=== PATIENT | male | born 1945 | race Caucasian/White ===

== ENCOUNTER 2016-09-28 03:46 | Inpatient (IN) | payer MEDICARE, OTHER ==
--- NOTE | ~2016-09-28 | DS ---
Discharge Summary [facility] [address] [place]. [address] NAME: NATHANIEL MEDINA JR : 41 STATUS : DIS IN PAT#: [id number] AGE: 71 ADM/REG DATE : 09/28/16 MR#: [id number] REPORT SERV DATE: 10/15/16 DICTATED BY: CHARLIE VILLAFANA DATE: 10/14/16 REPORT STATUS : Draft TRANSCRIBED BY: DASHA DATE: 10/14/16 Data Collection from hospitalization DISCHARGE DIAGNOSIS(ES): 1. End-stage renal disease. 2. Hypocalcemia. 3. Nausea, vomiting, and diarrhea - resolved. 4. Diabetes mellitus. 5. Hypoglycemia - resolved. 6. Hypertension. 7. Obstructive sleep apnea. 8. Coronary artery disease. CONSULTATIONS: None. PROCEDURES PERFORMED: 1. CT scan of the brain without contrast, 09/28/2016. 2. CT scan of the chest without contrast, 09/28/2016. 3. CT scan of the abdomen and pelvis without contrast, 09/28/2016. MEDICATIONS: Norvasc 5 mg daily, vitamin D 2000 units daily, CoQ enzyme 100 mg daily, Aricept 10 mg at bedtime, NovoLog injection insulin as instructed, Lopressor 25 mg twice a day - hold for systolic blood pressure less than 110, Protonix 40 mg before breakfast and supper, Pravachol 40 mg at bedtime, Zoloft 50 mg daily, Flomax 0.4 mg at 6 p.m., Levemir 6 units subcutaneously at bedtime, Nitrostat 0.4 mg sublingually as needed. CONDITION AT DISCHARGE: Stable. DISPOSITION: The patient was discharged to [facility] on a renal/diabetic diet with activities as instructed. HOSPITAL COURSE: This is a 71-year-old man who has end-stage renal disease. He dialyzes as a transient four months of the year. He is from [facility]. He had been sick for over a week now with nausea, vomiting, and diarrhea. Apparently Thursday, prior to this admission, his blood pressure was in the 80s, his blood sugar was low. He, therefore, did not go to dialysis and came to the emergency department. At that visit, he had a negative CT scan of the abdomen. He continued to have nausea, vomiting, and diarrhea. At approximately midnight on the night prior to this admission, he got up to go to the bathroom and fell. He was brought to the emergency department. In the emergency department, he was found to have rib fractures and had a low blood sugar at 33. He had had multiple electrolyte abnormalities. He did have significant pain to his wrist. He has right-sided abdominal pain. He had no nausea or vomiting on the morning of this admission and no diarrhea. He denied fevers or chills. He was admitted to the hospital for further evaluation and treatment. Upon admission, CT scan of the chest showed a question of a pulmonary contusion, CT scan of the brain was negative. Troponin was 0.08. The patient does have hypotension that had improved. He has hypocalcemia and hypomagnesemia as well as hypokalemia and leukocytosis. Discharge Summary [id number] [place]. [address] NAME: NATHANIEL MEDINA JR : 41 STATUS : DIS IN PAT#: [id number] AGE: 71 ADM/REG DATE : 09/28/16 MR#: [id number] REPORT SERV DATE: 10/15/16 DICTATED BY: CHARLIE VILLAFANA DATE: 10/14/16 REPORT STATUS : Draft TRANSCRIBED BY: DASHA DATE: 10/14/16 We are going to recheck a CT scan of the abdomen given the significant tenderness to the right side of his abdomen. Stool was going to be checked for C difficile. We would replace his electrolytes and hydrate. Dialysis would be performed the following day. Pain and nausea medication were provided. CT scan of the abdomen and pelvis without contrast was performed. Empiric Levaquin and Flagyl had been started. Electrolytes were being replaced. The following day, he had no complaints of chest pain. He had no edema. His abdomen was soft and nontender. On September 30, 2016, white blood cell count was 5.9. He had no complaints of abdominal pain at this time. He had no vomiting or diarrhea. On October 01, 2016, hemodialysis therapy was performed. O2 saturation was 98% on room air. We were going to watch him off antibiotics. Urinalysis was negative. Metoprolol was going to be restarted. Over the next couple of days, he continued to undergo his hemodialysis. He was off antibiotics. Norvasc was added for hypertension. Discharge planning was performed. He was off glipizide. Sliding scale insulin continued. Discharge planning was performed. Vitamin D was given. On 10/04/2016, he was alert and cooperative. He had no focal deficits. He had good pain control. Discharge instructions were given. Due to his improved and stable condition, he was discharged to [facility] with the above-stated instructions. Information collected by: Eunice Biswas I submit the above information as my discharge summary. TG/MODL Charlie Villafana M.D. / [id number] CC: Flo Newman M.D. [facility]
--- NOTE | ~2016-09-28 | HP ---
History And Physical [id number] [place]. [address] NAME: NATHANIEL MEDINA JR : 41 STATUS : ADM IN [facility]#: [id number] AGE: 71 ADM/REG DATE : 09/28/16 MR#: [id number] REPORT SERV DATE: 09/28/16 DICTATED BY: DATE: REPORT STATUS : Draft TRANSCRIBED BY: MODL DATE: 09/28/16 DATE OF ADMISSION: 09/28/2016 CHIEF COMPLAINT: Fall. HISTORY OF PRESENT ILLNESS: Mr. Medina is a 71-year-old white male, who has end-stage renal disease. He dialyzes with us as a transient four months of the year. He is from [facility]. He has been sick for over a week now with nausea, vomiting, diarrhea. Apparently, Thursday his blood pressure was in the 80s. Blood sugar was low. Therefore, he did not go to dialysis, came to the emergency department . At that visit, he had a negative CT of the abdomen. He has continued to have nausea, vomiting, diarrhea. Approximately midnight last night, he got up to the bathroom and fell, was brought to the emergency department. In the emergency department, he was found to have rib fractures, low blood sugar at 33, multiple electrolyte abnormalities. He is having significant pain to his rib. He has right-sided abdominal pain. No nausea, vomiting this a.m. and no diarrhea. Denies fevers or chills. PAST MEDICAL HISTORY: End-stage renal disease; diabetes; hypertension; obstructive sleep apnea, uses CPAP; coronary artery disease, status post bypass. FAMILY MEDICAL HISTORY: No end-stage renal disease. SOCIAL HISTORY: He is . No tobacco, but history of no alcohol or illicit drug use. ALLERGIES: NONE. HOME MEDICATIONS: Cholecalciferol, coenzyme Q10, Aricept, Glucotrol, Apresoline, NovoLog, Lantus, Lopressor, Procardia, Protonix, Pravachol, Phenergan, Zoloft, Flomax. REVIEW OF SYSTEMS: A 12-point review of systems obtained, negative with the exception of that in HPI. PHYSICAL EXAMINATION: VITAL SIGNS: Temp 98, blood pressure 113/53, pulse 105, respiratory rate 20, O2 saturation is 100%. GENERAL: This is a pleasant, cooperative white male. He is awake, alert, and oriented. Answers questions appropriately. HEENT: Normocephalic, atraumatic. Conjunctivae clear. Sclerae anicteric. Pupils are equal and round. Oral mucosa is moist. NECK: Supple. Carotids. No bruits. Neck veins flat. No lymphadenopathy. LUNGS: Respirations are even and unlabored. Decreased, but clear. HEART: Rate is regular. No murmur, rub, or gallop. ABDOMEN: Soft. He has tenderness to the right side of his abdomen. Both quadrants with hyperactive bowel sounds. No CVA tenderness. BACK: Within normal limits. EXTREMITIES: No edema, cyanosis, clubbing. Positive thrill and bruit. Left upper arm AV History And Physical [address] [place]. [address] NAME: NATHNAIEL MEDINA JR : 41 STATUS : ADM IN [facility]#: [id number] AGE: 71 ADM/REG DATE : 09/28/16 MR#: [id number] REPORT SERV DATE: 09/28/16 DICTATED BY: DATE: REPORT STATUS : Draft TRANSCRIBED BY: MODL DATE: 09/28/16 fistula. NEURO: No focal deficits. Mood and affect, pleasant and appropriate. PERTINENT LABS AND X-RAYS: He has had a chest x-ray that is negative. CT of the chest shows question of pulmonary contusion. CT of the brain negative. Sodium 134, potassium 2.9, chloride 96, CO2 of 17, BUN of 68, creatinine 15. Magnesium 1.3, calcium 6.5. Albumin 3.2. LFTs unremarkable. Troponin 0.08. WBC is 1400, H and H 12 and 35, platelets 229,000. INR 1.2. Glucose was 33, 42, 61 was last. IMPRESSION: 1. Fall. 2. Hypoglycemia. 3. Chest contusion on CT. 4. Nausea, vomiting, diarrhea for over one week. 5. Hypotension that improved. 6. Hypocalcemia. 7. Hypomagnesemia. 8. Hypokalemia. 9. Leukocytosis. PLAN: I am going to recheck a CT of the abdomen given the significant tenderness to the right side of his abdomen. Check stool for C. diff. Replace electrolytes, hydrate. Dialysis tomorrow. Pain and nausea medicine provided. Further orders and recommendations pending above results. TERRELL/MODL ELVIA Powell / [id number] CC: Flo Newman M.D.
[2016-09-28 03:38] LABS: BASOPHILS 0.1 %; BASOPHILS ABSOLUTE 0.01 10/3/uL (0.0-0.16); EOSINOPHILS 0.4 %; EOSINOPHILS ABSOLUTE 0.05 10/3/uL (0.0-0.53); ER CBC TAT 0 Hrs 07 Mins; HEMATOCRIT 35.1 % (40.0-51.0); HEMOGLOBIN 12.4 g/dL (13.6-17.8); IMMATURE GRANULOCYTES 0.5 %; IMMATURE GRANULOCYTES ABSOLUTE 0.07 10/3/uL (0.0-0.11); LYMPHOCYTES 6.4 %; MANUAL DIFF NO %; MEAN CORPUS HGB CONC 35.3 g/dL (32.0-36.0); MEAN CORPUSCULAR HEMOGLOB 31.2 pg (26.0-34.0); MEAN CORPUSCULAR VOLUME 88.4 fL (80-100); MEAN PLATELET VOLUME 10.3 fL (9.2-13.0); MONOCYTES 4.7 %; MONOCYTES ABSOLUTE 0.66 10/3/uL (0.21-1.20); NEUTROPHILS 87.9 %; NEUTROPHILS ABSOLUTE 12.39 10/3/uL (2.02-8.40); PLATELET COUNT 229 10/3/uL (150-400); RBC DISTRIBUTION WIDTH 13.7 % (12.0-16.0); RED CELL COUNT 3.97 10/6/uL (4.7-6.1); WHITE BLOOD CELLS 14.1 10/3/uL (4.5-10.5)
[~2016-09-28 03:46] MED LIST: AFEDITAB30 MG PO; ASAB PO; CO Q-10100 MG PO; CO Q-10200 MG PO; COZ50 PO; FLOMAX4 PO; GLUCOTRO10 PO; HALF81 PO; INSNOVR SC; LANTUS SC; LOP25 PO; LOP50 PO; MONOKET20 PO; NITROSTAT0.4 MG SL; NOVOLOG SC; PHOSLO PO; PRAVACHOL40 MG PO; PRILO PO; PRILOSEC40 MG PO; PRIN10 PO; PROTONIX PO; TUMSROLL PO; ZITH250 PO; ZOL50 PO
[2016-09-28 03:51] LABS: INTERNATIONAL NORMAL RATI 1.2 UNITS (-); PARTIAL THROMBO TIME 27.5 SEC (22.5-37.2); PROTIME (NOT ORD) 14.6 SEC (12.0-14.5)
[2016-09-28 03:56] LABS: ALBUMIN 3.2 G/DL (3.5-5.0); ALKALINE PHOSPHATASE 90 U/L (45-117); CHLORIDE, SERUM 96 MMOL/L (96-112); CO2 (CARBON DIOXIDE) 17 MMOL/L (24-34); SGOT(AST) 27 U/L (5-40); SGPT(ALT) 27 U/L (5-65); SODIUM, SERUM 134 MMOL/L (135-148); TOTAL BILIRUBIN 0.3 MG/DL (0-1.2); TOTAL PROTEIN 8.5 G/DL (6.0-8.5)
[2016-09-28 03:57] LABS: BUN (BLOOD UREA NITROGEN) 68 MG/DL (6-23); CALCIUM, SERUM 6.5 MG/DL (8.5-10.4); CHEST PAIN PROFILE TAT 0 Hrs 26 Mins; DIRECT BILIRUBIN < 0.1 MG/DL (0.0-0.4); GFR AFRICAN AMERICAN 3 ML/MIN (>=60); GFR NON AFRICAN AMERICAN 3 ML/MIN (>=60); GLUCOSE, SERUM 33 MG/DL (60-99); INDIRECT BILIRUBIN(NOT ORDER) 0.2 MG/DL (0.1-0.9); POTASSIUM, SERUM 2.9 MMOL/L (3.5-5.3); TROPONIN I 0.08 NG/ML (<0.05)
[2016-09-28] MEDS ORDERED: VITAMIN D31000 UNIT PO (04:25)
[2016-09-28] MEDS ORDERED: [UNRECOGNIZED DRUG - OTHER] (04:41)
[2016-09-28] MEDS ORDERED: ARICEPT10 PO (04:42)
[2016-09-28] MEDS ORDERED: LOP50 PO (04:42)
[2016-09-28] MEDS ORDERED: ZOL50 PO (04:43)
[2016-09-28] MEDS ORDERED: FLOMAX4 PO (04:43)
[2016-09-28] MEDS ORDERED: GLUCOTRO10 PO (04:43)
[2016-09-28] MEDS ORDERED: PRAVACHOL40 MG PO (04:44)
[2016-09-28] MEDS ORDERED: PROTONIX PO (04:48)
[2016-09-28] MEDS ORDERED: NOVOLOG SC (04:49)
[2016-09-28] MEDS ORDERED: PR25 PO (04:49)
[2016-09-28] MEDS ORDERED: LANTUS SC ×2 (04:50→15:30)
[2016-09-28] MEDS ORDERED: APRES10B PO (04:50)
[2016-09-28] MEDS ORDERED: [UNRECOGNIZED DRUG - OTHER] PO ×3 (04:52→15:27)
[2016-09-28] MEDS ORDERED: Co Q-10 PO (04:53)
[2016-09-28 11:02] LABS: CPK 250 U/L (0-200)
[2016-09-28 11:04] LABS: CK-MB 3.4 NG/ML; TROPONIN I 0.07 NG/ML (<0.05)
[2016-09-28 14:30] LABS: ALBUMIN 2.7 G/DL (3.5-5.0); BUN (BLOOD UREA NITROGEN) 67 MG/DL (6-23); CHLORIDE, SERUM 94 MMOL/L (96-112); GFR AFRICAN AMERICAN 3 ML/MIN (>=60); GFR NON AFRICAN AMERICAN 3 ML/MIN (>=60); POTASSIUM, SERUM 3.3 MMOL/L (3.5-5.3); SODIUM, SERUM 132 MMOL/L (135-148)
[2016-09-28 14:37] LABS: CALCIUM, SERUM 6.1 MG/DL (8.5-10.4); CO2 (CARBON DIOXIDE) 14 MMOL/L (24-34); GLUCOSE, SERUM 115 MG/DL (60-99); PHOSPHORUS, SERUM 7.3 MG/DL (2.5-4.5)
[2016-09-28] MEDS ORDERED: T PO (15:31)
[2016-09-28] MEDS ORDERED: NITROSTAT0.4 MG SL (15:34)
[2016-09-28 17:54] LABS: CPK 210 U/L (0-200)
[2016-09-28 17:59] LABS: CK-MB 2.6 NG/ML; TROPONIN I 0.08 NG/ML (<0.05)
[2016-09-29 07:26] LABS: BASOPHILS 0.1 %; BASOPHILS ABSOLUTE 0.01 10/3/uL (0.0-0.16); EOSINOPHILS 3.6 %; EOSINOPHILS ABSOLUTE 0.26 10/3/uL (0.0-0.53); HEMATOCRIT 26.8 % (40.0-51.0); HEMOGLOBIN 9.7 g/dL (13.6-17.8); IMMATURE GRANULOCYTES 0.5 %; IMMATURE GRANULOCYTES ABSOLUTE 0.04 10/3/uL (0.0-0.11); LYMPHOCYTES 22.3 %; LYMPHOCYTES ABSOLUTE 1.63 10/3/uL (0.67-4.30); MANUAL DIFF NO %; MEAN CORPUS HGB CONC 36.2 g/dL (32.0-36.0); MEAN CORPUSCULAR HEMOGLOB 32.3 pg (26.0-34.0); MEAN CORPUSCULAR VOLUME 89.3 fL (80-100); MONOCYTES 14.5 %; MONOCYTES ABSOLUTE 1.06 10/3/uL (0.21-1.20); NEUTROPHILS ABSOLUTE 4.32 10/3/uL (2.02-8.40); PLATELET COUNT 161 10/3/uL (150-400); RBC DISTRIBUTION WIDTH 13.7 % (12.0-16.0); WHITE BLOOD CELLS 7.3 10/3/uL (4.5-10.5)
[2016-09-29 07:46] LABS: ALBUMIN 2.4 G/DL (3.5-5.0); CHLORIDE, SERUM 97 MMOL/L (96-112); CO2 (CARBON DIOXIDE) 16 MMOL/L (24-34); PHOSPHORUS, SERUM 7.2 MG/DL (2.5-4.5); POTASSIUM, SERUM 3.7 MMOL/L (3.5-5.3); SODIUM, SERUM 136 MMOL/L (135-148)
[2016-09-29 07:47] LABS: BUN (BLOOD UREA NITROGEN) 71 MG/DL (6-23); GFR AFRICAN AMERICAN 3 ML/MIN (>=60); GFR NON AFRICAN AMERICAN 3 ML/MIN (>=60); GLUCOSE, SERUM 59 MG/DL (60-99)
[2016-09-29 09:02] LABS: PROCALCITONIN 2.27 ng/mL (<0.5)
[2016-09-30 05:46] LABS: BASOPHILS 0.2 %; BASOPHILS ABSOLUTE 0.01 10/3/uL (0.0-0.16); EOSINOPHILS 4.8 %; EOSINOPHILS ABSOLUTE 0.28 10/3/uL (0.0-0.53); HEMATOCRIT 25.5 % (40.0-51.0); IMMATURE GRANULOCYTES 0.5 %; IMMATURE GRANULOCYTES ABSOLUTE 0.03 10/3/uL (0.0-0.11); LYMPHOCYTES 28.4 %; LYMPHOCYTES ABSOLUTE 1.66 10/3/uL (0.67-4.30); MEAN CORPUS HGB CONC 35.3 g/dL (32.0-36.0); MEAN CORPUSCULAR HEMOGLOB 32.1 pg (26.0-34.0); MEAN CORPUSCULAR VOLUME 91.1 fL (80-100); MEAN PLATELET VOLUME 9.8 fL (9.2-13.0); MONOCYTES ABSOLUTE 0.82 10/3/uL (0.21-1.20); NEUTROPHILS 52.1 %; NEUTROPHILS ABSOLUTE 3.05 10/3/uL (2.02-8.40); PLATELET COUNT 167 10/3/uL (150-400); RBC DISTRIBUTION WIDTH 13.8 % (12.0-16.0); WHITE BLOOD CELLS 5.9 10/3/uL (4.5-10.5)
[2016-09-30 05:47] LABS: MANUAL DIFF NO %
[2016-09-30 06:01] LABS: ALBUMIN 2.2 G/DL (3.5-5.0); CHLORIDE, SERUM 103 MMOL/L (96-112); POTASSIUM, SERUM 3.9 MMOL/L (3.5-5.3); SODIUM, SERUM 141 MMOL/L (135-148)
[2016-09-30 06:02] LABS: BUN (BLOOD UREA NITROGEN) 36 MG/DL (6-23); CALCIUM, SERUM 6.4 MG/DL (8.5-10.4); CO2 (CARBON DIOXIDE) 23 MMOL/L (24-34); GFR AFRICAN AMERICAN 5 ML/MIN (>=60); GFR NON AFRICAN AMERICAN 4 ML/MIN (>=60); GLUCOSE, SERUM 230 MG/DL (60-99); PHOSPHORUS, SERUM 3.7 MG/DL (2.5-4.5)
[2016-10-01 09:03] LABS: BASOPHILS 0.1 %; BASOPHILS ABSOLUTE 0.01 10/3/uL (0.0-0.16); EOSINOPHILS 4.4 %; EOSINOPHILS ABSOLUTE 0.44 10/3/uL (0.0-0.53); HEMATOCRIT 25.8 % (40.0-51.0); HEMOGLOBIN 9.2 g/dL (13.6-17.8); IMMATURE GRANULOCYTES 0.4 %; IMMATURE GRANULOCYTES ABSOLUTE 0.04 10/3/uL (0.0-0.11); LYMPHOCYTES 12.6 %; LYMPHOCYTES ABSOLUTE 1.25 10/3/uL (0.67-4.30); MEAN CORPUS HGB CONC 35.7 g/dL (32.0-36.0); MEAN CORPUSCULAR HEMOGLOB 32.4 pg (26.0-34.0); MEAN CORPUSCULAR VOLUME 90.8 fL (80-100); MEAN PLATELET VOLUME 9.9 fL (9.2-13.0); MONOCYTES 9.6 %; MONOCYTES ABSOLUTE 0.95 10/3/uL (0.21-1.20); NEUTROPHILS 72.9 %; NEUTROPHILS ABSOLUTE 7.24 10/3/uL (2.02-8.40); PLATELET COUNT 189 10/3/uL (150-400); RBC DISTRIBUTION WIDTH 13.5 % (12.0-16.0); RED CELL COUNT 2.84 10/6/uL (4.7-6.1)
[2016-10-01 09:04] LABS: MANUAL DIFF NO %; WHITE BLOOD CELLS 9.9 10/3/uL (4.5-10.5)
[2016-10-01 09:14] LABS: ALBUMIN 2.3 G/DL (3.5-5.0); BUN (BLOOD UREA NITROGEN) 49 MG/DL (6-23); CALCIUM, SERUM 6.4 MG/DL (8.5-10.4); CHLORIDE, SERUM 104 MMOL/L (96-112); CO2 (CARBON DIOXIDE) 21 MMOL/L (24-34); GFR AFRICAN AMERICAN 4 ML/MIN (>=60); GFR NON AFRICAN AMERICAN 4 ML/MIN (>=60); GLUCOSE, SERUM 152 MG/DL (60-99); POTASSIUM, SERUM 4.3 MMOL/L (3.5-5.3); SODIUM, SERUM 140 MMOL/L (135-148)
[2016-10-02 05:51] LABS: ALBUMIN 2.2 G/DL (3.5-5.0); CHLORIDE, SERUM 104 MMOL/L (96-112); CO2 (CARBON DIOXIDE) 24 MMOL/L (24-34); GLUCOSE, SERUM 144 MG/DL (60-99); POTASSIUM, SERUM 4.4 MMOL/L (3.5-5.3); SODIUM, SERUM 140 MMOL/L (135-148)
[2016-10-02 05:57] LABS: BUN (BLOOD UREA NITROGEN) 30 MG/DL (6-23); CALCIUM, SERUM 6.9 MG/DL (8.5-10.4); CREATININE 8.95 MG/DL (0.70-1.30); GFR AFRICAN AMERICAN 6 ML/MIN (>=60); GFR NON AFRICAN AMERICAN 5 ML/MIN (>=60)
[2016-10-03 07:51] LABS: BASOPHILS 0.3 %; BASOPHILS ABSOLUTE 0.03 10/3/uL (0.0-0.16); EOSINOPHILS 6.9 %; EOSINOPHILS ABSOLUTE 0.64 10/3/uL (0.0-0.53); HEMOGLOBIN 9.1 g/dL (13.6-17.8); IMMATURE GRANULOCYTES 2.3 %; IMMATURE GRANULOCYTES ABSOLUTE 0.21 10/3/uL (0.0-0.11); LYMPHOCYTES 21.5 %; LYMPHOCYTES ABSOLUTE 1.99 10/3/uL (0.67-4.30); MEAN CORPUSCULAR HEMOGLOB 32.4 pg (26.0-34.0); MEAN CORPUSCULAR VOLUME 92.5 fL (80-100); MEAN PLATELET VOLUME 9.2 fL (9.2-13.0); MONOCYTES ABSOLUTE 0.83 10/3/uL (0.21-1.20); NEUTROPHILS ABSOLUTE 5.54 10/3/uL (2.02-8.40); PLATELET COUNT 197 10/3/uL (150-400); RBC DISTRIBUTION WIDTH 13.4 % (12.0-16.0); RED CELL COUNT 2.81 10/6/uL (4.7-6.1); WHITE BLOOD CELLS 9.2 10/3/uL (4.5-10.5)
[2016-10-03 07:54] LABS: MANUAL DIFF NO %
[2016-10-03 08:00] LABS: ALBUMIN 2.2 G/DL (3.5-5.0); BUN (BLOOD UREA NITROGEN) 42 MG/DL (6-23); CALCIUM, SERUM 6.6 MG/DL (8.5-10.4); CHLORIDE, SERUM 101 MMOL/L (96-112); CO2 (CARBON DIOXIDE) 23 MMOL/L (24-34); GFR AFRICAN AMERICAN 5 ML/MIN (>=60); GFR NON AFRICAN AMERICAN 4 ML/MIN (>=60); GLUCOSE, SERUM 169 MG/DL (60-99); PHOSPHORUS, SERUM 4.1 MG/DL (2.5-4.5); POTASSIUM, SERUM 4.5 MMOL/L (3.5-5.3); SODIUM, SERUM 139 MMOL/L (135-148)
== END 2016-10-04 16:07 | DRG 205 ==
LOC: ER 03:46 → 2SO 06:19
PROVIDERS: Emergency Medicine; Internal Medicine Nephrology; Nurse Practitioner; Registered Nurse
PROC: 5A1D60Z (ICD-10-PCS; principal; 2016-09-29)
DX: S22.32XA Fracture of one rib, left side, initial encounter for closed fracture (principal); N18.6 End stage renal disease; I95.9 Hypotension, unspecified; E11.22 Type 2 diabetes mellitus with diabetic chronic kidney disease; I12.0 Hypertensive chronic kidney disease with stage 5 chronic kidney disease or end stage renal disease; E83.42 Hypomagnesemia; R11.2 Nausea with vomiting, unspecified; R19.7 Diarrhea, unspecified; G47.33 Obstructive sleep apnea (adult) (pediatric); I25.10 Atherosclerotic heart disease of native coronary artery without angina pectoris; E83.51 Hypocalcemia; E11.649 Type 2 diabetes mellitus with hypoglycemia without coma; W19.XXXA Unspecified fall, initial encounter; E87.6 Hypokalemia; W18.30XA Fall on same level, unspecified, initial encounter; Z99.2 Dependence on renal dialysis; Z95.1 Presence of aortocoronary bypass graft; Y92.002 Bathroom of unspecified non-institutional (private) residence as the place of occurrence of the external cause; Z87.891 Personal history of nicotine dependence; Z79.4 Long term (current) use of insulin; Z79.82 Long term (current) use of aspirin
CPT/HCPCS: 70450; 71010; 71250; 74176; 80048; 80053; 80069; 80076; 82330; 82550; 82553; 82947; 82962; 83605; 83690; 83735; 84145; 84484; 85025; 85610; 85730; 87328; 87329; 87493; 87493-59; 89055; 93005; 96374; 96375; 96376; 97162-GP; 99285; A9270-GY; C9113; G0257; G8978-CK-GP; G8979-CJ-GP; J0610; J1885; J1956; J2405